=== PATIENT | female | born 1975 | race Caucasian/White ===

== ENCOUNTER 2023-05-25 19:17 | Emergency (ER) | payer OTHER ==
[~2023-05-25] VITALS: Ht 160 cm; Wt 77.1 kg
[2023-05-25 19:52] VITALS: BP 115/66; PULSE 88; RESP 16; TEMP 97.6; O2SAT 100
[2023-05-25] MEDS ORDERED: CEPH-588 PO (21:04)
[2023-05-25] MEDS ORDERED: ACYC400T14 PO (21:04)
[2023-05-25] MEDS ORDERED: IBUP-2213 PO (21:04)
[2023-05-25 21:14] VITALS: BP 115/66; PULSE 88; RESP 16; TEMP 97.6; O2SAT 100
== END 2023-05-25 21:14 | disposition home or self-care (01) ==
LOC: MED 19:17
DX: B02.9 Zoster without complications (principal); Z79.899 Other long term (current) drug therapy
CPT/HCPCS: 99283